=== PATIENT | female | born 1935 ===

== ENCOUNTER 2019-07-26 13:19 | Emergency (ER) | payer OTHER ==
[~2019-07-26] VITALS: Ht 149.9 cm; Wt 45.8 kg
[2019-07-26] MEDS ORDERED: COZAAR50 MG (13:24)
== END 2019-07-26 14:30 | disposition home or self-care (01) ==
LOC: EDBD 13:19 → ER 13:19
DX: S80.811A Abrasion, right lower leg, initial encounter (principal); W45.8XXA Other foreign body or object entering through skin, initial encounter; Y93.89 Activity, other specified; Y92.89 Other specified places as the place of occurrence of the external cause; Y99.8 Other external cause status